=== PATIENT | female | born 1965 | race Caucasian/White ===

== ENCOUNTER 2017-08-27 08:34 | Observation (INO) ==
[2017-08-27 08:59] LABS: Bilirubin,Urine Negative (Negative); Blood,Urine Negative (Negative); Clarity,Urine Clear (Clear); Color,Urine Yellow (Yellow); Glucose,Urine (UA) Normal (Normal); Ketones,Urine Negative (Negative); Leukocyte Esterase,Urine Negative (Negative); Nitrite,Urine Negative (Negative); Protein,Urine Negative (Neg-Trace); Specific Gravity,Urine 1.008 (1.010-1.025); Urobilinogen,Urine Normal (Normal)
[2017-08-27] MEDS ORDERED: predniSONE 20 MG TABLET PO ONE (09:01)
[2017-08-27] MEDS: Ipratropium/Albuterol Neb 3 ML IH SCH ×5 (09:24→23:52)
[2017-08-27] MEDS ORDERED: Ipratropium/Albuterol Neb 3 ML ONE (09:29)
[2017-08-27 09:38] LABS: Basophils # 0.2 K/mcL (0.0-0.2); Basophils % 2.1 %; Eosinophils # 0.6 K/mcL (0.0-0.6); Eosinophils % 8.4 %; Hematocrit 38.5 % (35.3-44.9); Hemoglobin 11.2 g/dL (11.5-15.4); Immature Granulocytes % 0.5 % (0-4); Lymphocytes # 2.2 K/mcL (0.6-4.6); Lymphocytes % 29.9 %; Mean Corpuscular HGB Conc 29.1 g/dL (31.6-35.5); Mean Corpuscular Hemoglobin 19.9 pg (28.0-33.3); Mean Corpuscular Volume 68.5 fL (83.0-100.0); Mean Platelet Volume 10.6 fL (9.4-12.4); Monocytes # 0.4 K/mcL (0.0-1.3); Monocytes % 4.9 %; Platelet Count 336 K/mcL (140-400); Red Blood Count 5.62 M/mcL (3.82-4.97); Red Cell Distribution Width 18.6 % (11.5-14.5); Segmented Neutrophils % 54.2 %
[2017-08-27 09:41] LABS: INR 1.1; Prothrombin Time 11.3 Seconds (9.4-12.1)
[2017-08-27 09:44] LABS: Activated Partial Thrombo Time 31.9 Seconds (26.0-36.0)
--- NOTE | 2017-08-27 09:48 | Emergency Department Note ---
Disposition Clinical Impression: Hypertensive urgency, COPD exacerbation Disposition: Admitted As Inpatient Condition: Fair Chest Pain HPI - General Chief Complaint: ED Dizziness Stated Complaint: sob,CP,dizzy Time Seen by Provider: 08/27/17 08:45 Source: patient Limitations: no limitations Vital Signs Reviewed: Yes Nursing Notes Reviewed: Yes - History of Present Illness HPI Narrative: 52-year-old female with a past medical history of COPD complaining of shortness of breath followed by substernal chest pain. She states shortness of breath began this morning at 3 AM prior to work, and refractory to albuterol inhaler treatment. Patient states chest pain worsened on exertion, relieved on rest, describes as "dull", and endorses radiation to left arm. She did not take any medication, including no aspirin, for chest pain. Patient states chest pain constant. Denies previous occurrence of such pain. Patient endorses active smoker. Not on O2 at home. Has required previous hospitalization many years ago , before 2010. Unable to state which year. No previous intubations. Patient does not follow-up with a primary care provider, and has not seen provider for several years. Patient denies back pain, abdominal pain, fever, or chills. Social: Patient's recently a week ago. Patient did endorse suicidal thoughts last week. Today, denies suicidal or homicidal ideation. Pt complaint: chest pain Severity scale (1-10): 10 - Related Data Home Medications Medication Instructions Recorded Confirmed Albuterol Sulfate [Proair Hfa] 2 puff IH Q4-6H PRN 08/27/17 08/27/17 Ferrous Sulfate [Iron] 325 mg PO DAILY 08/27/17 08/27/17 Multivit-Min/FA/Lycopen/Lutein [A 1 tab PO DAILY 08/27/17 08/27/17 Thru Z Select Multivit Tab] Allergies Allergy/AdvReac Type Severity Reaction Status Date / Time ampicillin Allergy Hives Verified 08/27/17 11:07 codeine Allergy Rash Verified 08/27/17 11:07 Review of Systems: As Per HPI Constitutional: Reports: as per HPI Cardiovascular: Reports: as per HPI Respiratory: Reports: as per HPI Psychiatric: Reports: as per HPI Chest Pain PMH - Past Medical History Medical history: Reports: COPD Psychiatric history: Reports: no psych history - Social History Smoking Status: Current every day smoker Alcohol use: Reports: none Drug use: Reports: none Physical Exam - General Limitations: no limitations General appearance: alert, in no apparent distress - Eye Eye exam: Present: normal appearance, EOMI - Chest Chest inspection: Present: symmetric chest wall rise. Absent: tenderness, rash - Respiratory Respiratory exam: Present: wheezes, prolonged expiratory phase - Cardiovascular Cardiovascular exam: Present: regular rate, normal rhythm, +S1, +S2 - Abdominal Exam Abdominal exam: Present: soft, Non-Tender. Absent: distention, rebound - Skin Skin exam: Present: warm. Absent: cyanosis, diaphoresis Course Course Narrative: #Hypertensive Urgency Vital signs, per protocol Initial SBP over >190 Blood pressure 152/92 CBC, BMP, UA, Troponin < 0.03 Nitropaste x1 Aspirin x 1 #COPD Exacerbation Duonebs Corticosteroids x1 Continuous pulse oximetry Oxygen supplementation, with goal of SaO2 > 90% #52-year-old female with cardiovascular risk factors (HTN, obesity, smoking status) presenting with substernal chest pain Heart Score 4 EKG reviewed Troponin < 0.03 Control of HTN - Reevaluation(s) Reevaluation #1: 10:55 BP 152/92 Patient status post DuoNeb treatment. SOB improved. Endorses "dull" chest pain. PE positive for wheezing b/l. - Consultations Consultation #1: 08/27/17 10:50 AM - Hospitalist consultation: Discussion with Dr. Day. Hospitalist accepts admission for COPD exacerbation with failure of outpatient treatment and hypertensive urgency. Vital Signs Temperature 97.5 F L 08/27/17 08:35 Pulse Rate 86 08/27/17 08:35 Respiratory Rate 18 08/27/17 08:35 Blood Pressure 195/110 08/27/17 08:35 O2 Sat by Pulse Oximetry 98 08/27/17 08:35 Temperature 98.1 F 08/27/17 12:32 Pulse Rate 85 08/27/17 12:32 Respiratory Rate 16 08/27/17 12:32 Blood Pressure 158/78 08/27/17 12:32 O2 Sat by Pulse Oximetry 97 08/27/17 12:32 Oxygen Delivery Oxygen Delivery Room Air Chest Pain - MDM Narrative Medical decision making narrative: 52-year-old female with cardiovascular risk factors and COPD exacerbation lost to follow-up presenting with substernal chest pain with radiation to left arm shortness of breath, after failure of outpatient breathing treatment treatment, and lastly elevated blood pressure. Estimated HEART Score 4- 12-16.6% risk of adverse cardiac event. The pressure concerning for hypertensive urgency, and due to clinical presentation would recommend patient for admission. - Lab Data Result diagrams: 08/27/17 09:22 08/27/17 09:22 Lab Results 08/27/17 08/27/17 08/27/17 Range/Units 08:50 09:22 09:22 WBC 7.5 (4.3-11.1) K/mcL RBC 5.62 H (3.82-4.97) M/mcL Hgb 11.2 L (11.5-15.4) g/dL Hct 38.5 (35.3-44.9) % MCV 68.5 L (83.0-100.0) fL MCH 19.9 L (28.0-33.3) pg MCHC 29.1 L (31.6-35.5) g/dL RDW 18.6 H (11.5-14.5) % Plt Count 336 (140-400) K/mcL MPV 10.6 (9.4-12.4) fL Immature Gran % 0.5 (0-4) % Seg Neutrophils % 54.2 % Lymphocytes % 29.9 % Monocytes % 4.9 % Eosinophils % 8.4 % Basophils % 2.1 % Neutrophils # 4.1 (1.6-8.9) K/mcL Lymphocytes # 2.2 (0.6-4.6) K/mcL Monocytes # 0.4 (0.0-1.3) K/mcL Eosinophils # 0.6 (0.0-0.6) K/mcL Basophils # 0.2 (0.0-0.2) K/mcL Platelet Estimate Normal (Normal) Anisocytosis 1+ A (Not Present) Microcytosis Present A (Not Present) PT 11.3 (9.4-12.1) Seconds INR 1.1 APTT 31.9 (26.0-36.0) Seconds Sodium (136-145) mEq/L Potassium (3.5-5.1) mEq/L Chloride (98-107) mEq/L Carbon Dioxide (23-29) mEq/L BUN (6-20) mg/dL Creatinine (0.60-1.20) mg/dL Est GFR ( Amer) (> 60) Est GFR (Non-Af Amer) (> 60) BUN/Creatinine Ratio (6-26) Glucose (70-105) mg/dL Calculated Osmolality (280-300) Calcium (8.6-10.3) mg/dL Troponin I (< 0.04) ng/mL Urine Color Yellow (Yellow) Urine Clarity Clear (Clear) Urine pH 7.0 (5.0-8.0) pH Units Ur Specific [place] 1.008 L (1.010-1.025) Urine Protein Negative (Neg-Trace) mg/dL Urine Glucose (UA) Normal (Normal) mg/dL Urine Ketones Negative (Negative) mg/dL Urine Blood Negative (Negative) Urine Nitrite Negative (Negative) Urine Bilirubin Negative (Negative) Urine Urobilinogen Normal (Normal) mg/dL Ur Leukocyte Esterase Negative (Negative) Ur Culture Indicated? NO (NO) 08/27/17 Range/Units 09:22 WBC (4.3-11.1) K/mcL RBC (3.82-4.97) M/mcL Hgb (11.5-15.4) g/dL Hct (35.3-44.9) % MCV (83.0-100.0) fL MCH (28.0-33.3) pg MCHC (31.6-35.5) g/dL RDW (11.5-14.5) % Plt Count (140-400) K/mcL MPV (9.4-12.4) fL Immature Gran % (0-4) % Seg Neutrophils % % Lymphocytes % % Monocytes % % Eosinophils % % Basophils % % Neutrophils # (1.6-8.9) K/mcL Lymphocytes # (0.6-4.6) K/mcL Monocytes # (0.0-1.3) K/mcL Eosinophils # (0.0-0.6) K/mcL Basophils # (0.0-0.2) K/mcL Platelet Estimate (Normal) Anisocytosis (Not Present) Microcytosis (Not Present) PT (9.4-12.1) Seconds INR APTT (26.0-36.0) Seconds Sodium 139 (136-145) mEq/L Potassium 3.9 (3.5-5.1) mEq/L Chloride 106 (98-107) mEq/L Carbon Dioxide 29 (23-29) mEq/L BUN 9 (6-20) mg/dL Creatinine 0.54 L (0.60-1.20) mg/dL Est GFR ( Amer) > 60 (> 60) Est GFR (Non-Af Amer) > 60 (> 60) BUN/Creatinine Ratio 17 (6-26) Glucose 96 (70-105) mg/dL Calculated Osmolality 287 (280-300) Calcium 9.7 (8.6-10.3) mg/dL Troponin I < 0.03 (< 0.04) ng/mL Urine Color (Yellow) Urine Clarity (Clear) Urine pH (5.0-8.0) pH Units Ur Specific [place] (1.010-1.025) Urine Protein (Neg-Trace) mg/dL Urine Glucose (UA) (Normal) mg/dL Urine Ketones (Negative) mg/dL Urine Blood (Negative) Urine Nitrite (Negative) Urine Bilirubin (Negative) Urine Urobilinogen (Normal) mg/dL Ur Leukocyte Esterase (Negative) Ur Culture Indicated? (NO) - EKG Data EKG attestation: Yes I reviewed and interpreted this EKG. EKG results narrative: 08/27/2017 8:38:56 Sinus Tachycardia. Ventricular rate 100. MN interval 154. QRS duration 90. QT/QTc 371/428 ms. Reviewed with Attending Heart Score - Score History: Moderately Suspicious EKG: Normal Age: 45-65 Risk Factors: Equal/Greater than 3 risk factor or history of atherosclerotic disease (HTN, Obesity, Smoking) Troponin: Less than normal limit HEART Score Total: 4
[2017-08-27 09:51] LABS: Anisocytosis 1+ (Not Present); Microcytosis Present (Not Present); Neutrophils # 4.1 K/mcL (1.6-8.9); Platelet Estimate Normal (Normal)
[2017-08-27 09:59] LABS: Troponin I < 0.03 ng/mL (< 0.04)
[2017-08-27 10:08] LABS: BUN/Creatinine Ratio 17 (6-26); Blood Urea Nitrogen 9 mg/dL (6-20); Calcium 9.7 mg/dL (8.6-10.3); Carbon Dioxide 29 mEq/L (23-29); Chloride 106 mEq/L (98-107); Glucose 96 mg/dL (70-105); Osmolality,Calculated 287 (280-300); Potassium 3.9 mEq/L (3.5-5.1); Sodium 139 mEq/L (136-145); eGFR For African Americans > 60 (> 60); eGFR For Non-African Americans > 60 (> 60)
[2017-08-27] MEDS ORDERED: Nitroglycerin 1 INCH/GM PACKET TP ONE (10:44)
[2017-08-27] MEDS ORDERED: Aspirin 81 MG TAB.CHEW PO SCH (10:45)
--- NOTE | 2017-08-27 11:24 | Emergency Department Note ---
Disposition Clinical Impression: Hypertensive urgency, COPD exacerbation Disposition: Admitted As Inpatient Condition: Fair Referrals: NONE,PCP [Primary Care Provider] - Forms: ED Satisfaction Letter General Adult HPI - General Chief complaint: ED Dizziness Stated complaint: sob,CP,dizzy Time Seen by Provider: 08/27/17 08:45 Source: patient Mode of arrival: ambulatory Limitations: no limitations Nursing Notes Reviewed: Yes Vital Signs Reviewed: Yes - History of Present Illness Pain Scale: 10 - Related Data Home Medications Medication Instructions Recorded Confirmed Albuterol Sulfate [Proair Hfa] 2 puff IH Q4-6H PRN 08/27/17 08/27/17 Ferrous Sulfate [Iron] 325 mg PO DAILY 08/27/17 08/27/17 Multivit-Min/FA/Lycopen/Lutein [A 1 tab PO DAILY 08/27/17 08/27/17 Thru Z Select Multivit Tab] Allergies Allergy/AdvReac Type Severity Reaction Status Date / Time ampicillin Allergy Hives Verified 08/27/17 11:07 codeine Allergy Rash Verified 08/27/17 11:07 Constitutional: Reports: as per HPI Cardiovascular: Reports: as per HPI Respiratory: Reports: as per HPI Psychiatric: Reports: as per HPI Past Medical History - Past Medical History Medical history: Reports: COPD Psychiatric history: Reports: no psych history - Social History Smoking Status: Current every day smoker Smokeless Tobacco Status: No Alcohol use: Reports: none Drug use: Reports: none Physical Exam - General Limitations: no limitations General appearance: alert, in no apparent distress Course Vital Signs Temperature 97.5 F L 08/27/17 08:35 Pulse Rate 86 08/27/17 08:35 Respiratory Rate 18 08/27/17 08:35 Blood Pressure 195/110 08/27/17 08:35 O2 Sat by Pulse Oximetry 98 08/27/17 08:35 Temperature 97.5 F L 08/27/17 08:35 Pulse Rate 88 08/27/17 09:44 Respiratory Rate 18 08/27/17 09:44 Blood Pressure 194/117 08/27/17 09:44 O2 Sat by Pulse Oximetry 100 08/27/17 09:44 Oxygen Delivery Oxygen Delivery Room Air Medical Decision Making - Lab Data Result diagrams: 08/27/17 09:22 08/27/17 09:22 Lab Results 04/09/18 04/09/18 04/09/18 Range/Units 08:50 09:22 09:22 WBC 7.5 (4.3-11.1) K/mcL RBC 5.62 H (3.82-4.97) M/mcL Hgb 11.2 L (11.5-15.4) g/dL Hct 38.5 (35.3-44.9) % MCV 68.5 L (83.0-100.0) fL MCH 19.9 L (28.0-33.3) pg MCHC 29.1 L (31.6-35.5) g/dL RDW 18.6 H (11.5-14.5) % Plt Count 336 (140-400) K/mcL MPV 10.6 (9.4-12.4) fL Immature Gran % 0.5 (0-4) % Seg Neutrophils % 54.2 % Lymphocytes % 29.9 % Monocytes % 4.9 % Eosinophils % 8.4 % Basophils % 2.1 % Neutrophils # 4.1 (1.6-8.9) K/mcL Lymphocytes # 2.2 (0.6-4.6) K/mcL Monocytes # 0.4 (0.0-1.3) K/mcL Eosinophils # 0.6 (0.0-0.6) K/mcL Basophils # 0.2 (0.0-0.2) K/mcL Platelet Estimate Normal (Normal) Anisocytosis 1+ A (Not Present) Microcytosis Present A (Not Present) PT 11.3 (9.4-12.1) Seconds INR 1.1 APTT 31.9 (26.0-36.0) Seconds Sodium (136-145) mEq/L Potassium (3.5-5.1) mEq/L Chloride (98-107) mEq/L Carbon Dioxide (23-29) mEq/L BUN (6-20) mg/dL Creatinine (0.60-1.20) mg/dL Est GFR ( Amer) (> 60) Est GFR (Non-Af Amer) (> 60) BUN/Creatinine Ratio (6-26) Glucose (70-105) mg/dL Calculated Osmolality (280-300) Calcium (8.6-10.3) mg/dL Troponin I (< 0.04) ng/mL Urine Color Yellow (Yellow) Urine Clarity Clear (Clear) Urine pH 7.0 (5.0-8.0) pH Units Ur Specific [place] 1.008 L (1.010-1.025) Urine Protein Negative (Neg-Trace) mg/dL Urine Glucose (UA) Normal (Normal) mg/dL Urine Ketones Negative (Negative) mg/dL Urine Blood Negative (Negative) Urine Nitrite Negative (Negative) Urine Bilirubin Negative (Negative) Urine Urobilinogen Normal (Normal) mg/dL Ur Leukocyte Esterase Negative (Negative) Ur Culture Indicated? NO (NO) 08/27/17 Range/Units 09:22 WBC (4.3-11.1) K/mcL RBC (3.82-4.97) M/mcL Hgb (11.5-15.4) g/dL Hct (35.3-44.9) % MCV (83.0-100.0) fL MCH (28.0-33.3) pg MCHC (31.6-35.5) g/dL RDW (11.5-14.5) % Plt Count (140-400) K/mcL MPV (9.4-12.4) fL Immature Gran % (0-4) % Seg Neutrophils % % Lymphocytes % % Monocytes % % Eosinophils % % Basophils % % Neutrophils # (1.6-8.9) K/mcL Lymphocytes # (0.6-4.6) K/mcL Monocytes # (0.0-1.3) K/mcL Eosinophils # (0.0-0.6) K/mcL Basophils # (0.0-0.2) K/mcL Platelet Estimate (Normal) Anisocytosis (Not Present) Microcytosis (Not Present) PT (9.4-12.1) Seconds INR APTT (26.0-36.0) Seconds Sodium 139 (136-145) mEq/L Potassium 3.9 (3.5-5.1) mEq/L Chloride 106 (98-107) mEq/L Carbon Dioxide 29 (23-29) mEq/L BUN 9 (6-20) mg/dL Creatinine 0.54 L (0.60-1.20) mg/dL Est GFR ( Amer) > 60 (> 60) Est GFR (Non-Af Amer) > 60 (> 60) BUN/Creatinine Ratio 17 (6-26) Glucose 96 (70-105) mg/dL Calculated Osmolality 287 (280-300) Calcium 9.7 (8.6-10.3) mg/dL Troponin I < 0.03 (< 0.04) ng/mL Urine Color (Yellow) Urine Clarity (Clear) Urine pH (5.0-8.0) pH Units Ur Specific [place] (1.010-1.025) Urine Protein (Neg-Trace) mg/dL Urine Glucose (UA) (Normal) mg/dL Urine Ketones (Negative) mg/dL Urine Blood (Negative) Urine Nitrite (Negative) Urine Bilirubin (Negative) Urine Urobilinogen (Normal) mg/dL Ur Leukocyte Esterase (Negative) Ur Culture Indicated? (NO) Attestation Statement - Attestation Attestation: I, Colin Hi, examined this patient and my medical decision-making was reviewed with the AUTOM[employer] SPECIALIST/PA/Advanced Practice Nurse/Resident Physician. I agree with the documented findings, disposition and treatment plan as described except to the extent set forth below. 52-year-old female presents emergency Department with concerns of shortness of breath, chest pain and lightheadedness. Patient states pain is a dull ache in the center of her chest that radiates to the left upper extremity and left shoulder. Patient reports associated mild nausea but has not vomited. Patient does state the pain is worsened with cough however her pain remains when not coughing. Patient has no history of cardiac disease. She does have a history of COPD and has wheezing present on the lung exam. Patient does not have a primary care provider. Her blood pressure was significantly elevated in the emergency department with a systolic greater than 200. EKG did not show evidence of acute STEMI. Initial troponin was negative. Chest x-ray does not show acute infiltrate. Patient will be admitted to the hospitalist for further care and evaluation of her elevated blood pressure and further treatment of her COPD exacerbation.
[2017-08-27] MEDS ORDERED: Aspirin 81 MG TAB.CHEW PO ONE (11:54)
--- NOTE | 2017-08-27 12:49 | Internal Med History&Physical ---
Date of Encounter: 08/27/17 Time of Encounter: 12:46 Assessment and Plan (1) Chest pain Current visit: Yes Status: Acute Chest pain and possible contribution of COPD exacerbation but given her risk factors reluctant nuclear stress test in a.m. was blood pressure better control Qualifiers: Chest pain type: chest pain due to myocardial ischemia Ischemic chest pain type: unspecified angina pectoris type Qualified Code(s): I25.9 - Chronic ischemic heart disease, unspecified (2) Smoking Current visit: Yes Status: Acute Chronic (3) Hypertensive urgency Current visit: Yes Status: Chronic Likely contribution to chest pain patient is unaware of blood pressure issue was started on Norvasc and Lopressor (4) COPD exacerbation Current visit: Yes Status: Acute COPD exacerbation was started on Solu-Medrol and DuoNeb chest x-ray does not show pneumonia Internal Medicine - H&P: HPI Chief complaint: qchest pain and sob Admitted From: Emergency Dept Plans for Post Hospital Care: Home History of present illness: Ms. Chavez is a 52 year old female Patient with history of COPD, hypertension, obesity, high cholesterol and smoking patient presented emergency room with a chest pain describes a heaviness also cough nonproductive with increased shortness of breath on arrival to the emergency room patient was wheezing given breathing treatment chest x-ray does not show pneumonia blood pressure with very high 190s over 110 EKG is unremarkable patient will be admitted due to COPD exacerbation chest pain and hypertensive urgency. She is not on medication for blood pressure she was unaware of blood pressure issues Past Med Surg Social Fam HX - Past Medical History Medical history: COPD Psychiatric history: anxiety - Past Surgical History Surgical History: , cholecystectomy - Social History Smoking Status: Current every day smoker Smokeless Tobacco Status: No Alcohol use: none Drug use: none Internal Medicine - H&P: Meds Albuterol Sulfate [Proair Hfa] 2 puff IH Q4-6H PRN 08/27/17 [History] Ferrous Sulfate [Iron] 325 mg PO DAILY 08/27/17 [History] Multivit-Min/FA/Lycopen/Lutein [A Thru Z Select Multivit Tab] 1 tab PO DAILY 02/05 [History] 3 Allergy/AdvReac Type Severity Reaction Status Date / Time ampicillin Allergy Hives Verified 08/27/17 11:07 codeine Allergy Rash Verified 08/27/17 11:07 All Systems PM: A 10-system review of systems was performed and is negative for pertinent findings except as documented above in the HPI. - Constitutional Constitutional: no chills, no fever(s), no night sweats - EENT Eyes: no change in vision, no discharge, no pain, no photophobia Ears: no ear discharge, no ear pain, no tinnitus Nose, mouth and throat: no dysphagia, no nasal discharge, no neck pain, no sore throat - Cardiovascular Cardiovascular ROS IM: chest pain, dyspnea, dyspnea on exertion - Respiratory Respiratory: cough, dyspnea on exertion - Gastrointestinal Gastrointestinal: no abdominal pain, no diarrhea, no hematemesis, no hematochezia, no melena, no nausea, no vomiting - Genitourinary Genitourinary: no change in urinary stream, no dysuria, no flank pain, no hematuria - Musculoskeletal Musculoskeletal ROS IM: no numbness, no tingling - Integumentary Integumentary IM: no rash, no unusual bruising - Neurological Neurological ROS: no confusion, no convulsions, no focal weakness, no numbness, no tingling, no tremor(s) - Constitutional Vitals: Temp Pulse Resp BP Pulse Ox 98.1 F 85 16 158/78 97 08/27/17 12:32 08/27/17 12:32 08/27/17 12:32 08/27/17 12:32 08/27/17 12:32 - Head Head exam: Present: atraumatic, normocephalic - Eye Eye exam: Present: PERRL, conjuntiva pink, sclera anicteric Pupils: Present: PERRL - Respiratory Respiratory exam: Present: rhonchi, wheezes - Cardiovascular Cardiovascular exam: Present: RRR, +S1, +S2. Absent: diastolic murmur, gallop, rubs, systolic murmur - GI/Abdominal GI/Abdominal exam: Present: normal bowel sounds, soft, no peritoneal signs. Absent: distended, tenderness Internal Med - H&P Results - Labs CBC & Chem 7: 08/27/17 09:22 08/27/17 09:22
[2017-08-27] MEDS ORDERED: Naloxone 0.4 MG/ML INJ IVP PRN (12:53)
[2017-08-27] MEDS ORDERED: Ipratropium/Albuterol Neb 3 ML IH PRN (13:02)
[2017-08-27] MEDS: amLODIPine 5 MG TABLET PO SCH (14:05)
[2017-08-27] MEDS: 0.9 % Sodium Chloride 1,000 ML IVC SCH (14:06)
[2017-08-27] MEDS: Acetaminophen 325 MG TABLET PO PRN ×2 (14:15→22:05)
[2017-08-27] MEDS: MethylPREDNISolone 40 MG/ML VIAL IVP SCH (16:37)
[2017-08-27] MEDS: traMADol 50 MG TABLET PO PRN (20:32)
[2017-08-27] MEDS ORDERED: Perflutren Lipid Microsphere 1.3 ML in 0.9 % Sodium Chloride 8.7 ML IVP ONE (21:23)
[2017-08-28] MEDS: MethylPREDNISolone 40 MG/ML VIAL IVP SCH ×3 (00:10→15:51)
[2017-08-28 01:40] LABS: Basophils % 0.2 %; Hematocrit 34.7 % (35.3-44.9); Hemoglobin 10.1 g/dL (11.5-15.4); Immature Granulocytes % 0.5 % (0-4); Lymphocytes % 16.1 %; Mean Corpuscular HGB Conc 29.1 g/dL (31.6-35.5); Mean Corpuscular Volume 68.7 fL (83.0-100.0); Mean Platelet Volume 10.8 fL (9.4-12.4); Monocytes # 0.1 K/mcL (0.0-1.3); Monocytes % 1.9 %; Platelet Count 326 K/mcL (140-400); Red Blood Count 5.05 M/mcL (3.82-4.97); Red Cell Distribution Width 18.3 % (11.5-14.5); Segmented Neutrophils % 81.3 %
[2017-08-28 01:55] LABS: Alanine Aminotransferase 13 Units/L (7-52); Albumin 4.1 g/dL (3.5-5.7); Albumin/Globulin Ratio 1.5 (1.1-2.2); Alkaline Phosphatase 77 Units/L (34-104); Aspartate Amino Transferase 12 Units/L (13-39); BUN/Creatinine Ratio 20 (6-26); Bilirubin,Total 0.3 mg/dL (0.3-1.0); Blood Urea Nitrogen 10 mg/dL (6-20); Calcium 9.2 mg/dL (8.6-10.3); Carbon Dioxide 24 mEq/L (23-29); Chloride 109 mEq/L (98-107); Chol/HDL Ratio 3.1 (0-4.9); Cholesterol 157 mg/dL (< 200); Globulin 2.7 g/dL (2.4-3.5); Glucose 139 mg/dL (70-105); HDL Cholesterol 51 mg/dL (40-59); LDL Cholesterol,Calculated 96 mg/dL (0-99); Magnesium 2.3 mg/dL (1.6-2.6); Osmolality,Calculated 287 (280-300); Potassium 4.1 mEq/L (3.5-5.1); Sodium 138 mEq/L (136-145); Total Protein 6.8 g/dL (6.4-8.9); Triglycerides 48 mg/dL (< 150); eGFR For African Americans > 60 (> 60); eGFR For Non-African Americans > 60 (> 60)
[2017-08-28 02:05] LABS: Anisocytosis 1+ (Not Present); Hypochromasia Present (Not Present); Microcytosis Present (Not Present); Platelet Estimate Normal (Normal)
[2017-08-28] MEDS: Ipratropium/Albuterol Neb 3 ML IH SCH ×5 (05:25→20:12)
[2017-08-28] MEDS: 0.9 % Sodium Chloride 1,000 ML IVC SCH (05:27)
[2017-08-28] MEDS ORDERED: Regadenoson 0.4 MG/5 ML SYRINGE IVP ONE (06:50)
[2017-08-28] MEDS: Multivit/Ca/Min/Fe/FA 1 TAB TABLET PO SCH (10:00)
[2017-08-28] MEDS: amLODIPine 5 MG TABLET PO SCH (10:00)
[2017-08-28] MEDS: Acetaminophen 325 MG TABLET PO PRN (10:10)
--- NOTE | 2017-08-28 16:24 | Internal Med Progress Note ---
Date of Encounter: 08/28/17 Time of Encounter: 16:21 - Assessment and plan (1) Chest pain Current Visit: Yes Status: Acute Assessment and plan: -Patient presented with hypertensive urgency and chest pain. BP controlled and chest pain resolved. - Never take blood pressure medicine at home, started on Norvasc and Lopressor, Lopressor was changed to lisinopril. - Troponin negative 3, EKG no acute changes, chest x-ray essentially normal. - Echo is essentially normal except mild LV diastolic dysfunction. - Nuclear stress test no evidence of ischemia. - Chest pain likely muscular skeletal related. Qualifiers: Chest pain type: chest pain due to myocardial ischemia Ischemic chest pain type: unspecified angina pectoris type Qualified Code(s): I25.9 - Chronic ischemic heart disease, unspecified (2) COPD exacerbation Current Visit: Yes Status: Acute Assessment and plan: - Shortness of breath improved, IV steroid to change to oral, start tapering tomorrow. - Continue DuoNeb. (3) Smoking Current Visit: Yes Status: Acute Assessment and plan: - Smoking cessation discussed with patient. (4) Hypertensive urgency Current Visit: Yes Status: Resolved - Time Spent With Patient Total time spent is greater than 50% in coordination of care (as documented) at patient's floor/unit and/or counseling patient: Greater than 35 minutes - Subjective Interval history: She has no chest pain currently. Does complain shortness of breath on exertion. Currently still smoking half pack a day. - Constitutional Vitals: Temp Pulse Resp BP Pulse Ox 98.0 F 70 16 162/81 97 08/28/17 15:00 08/28/17 15:00 08/28/17 15:42 08/28/17 15:00 08/28/17 15:42 Exam: PHYSICAL EXAMINATION: GENERAL APPEARANCE: The patient is alert, oriented and in no acute distress. HEENT: Head is normocephalic. The sinuses are nontender. Pupils are equal and reactive. The nares are patent. Oropharynx clear without lesions. NECK: Supple without lymphadenopathy. HEART: Regular rate and rhythm. LUNGS: No crackles or wheezes are heard. ABDOMEN: Soft, nontender, nondistended with good bowel sounds heard. Inguinal area is normal. EXTREMITIES: Without cyanosis, clubbing or edema. NEUROLOGICAL: Gross nonfocal. SKIN: Warm and dry without any rash. Internal Medicine: Result - Labs CBC & Chem 7: 08/28/17 01:19 08/28/17 01:19 Labs: Short CBC 08/28/17 Range/Units 01:19 WBC 6.2 (4.3-11.1) K/mcL Hgb 10.1 L (11.5-15.4) g/dL Hct 34.7 L (35.3-44.9) % Plt Count 326 (140-400) K/mcL Neutrophils # 5.0 (1.6-8.9) K/mcL BMP 08/28/17 01:19 Sodium 138 Potassium 4.1 Chloride 109 H Carbon Dioxide 24 BUN 10 Creatinine 0.50 L Glucose 139 H Calcium 9.2 Cardiac Enzymes 08/27/17 08/28/17 Range/Units 19:23 01:19 Troponin I < 0.03 < 0.03 (< 0.04) ng/mL Liver Function 08/28/17 Range/Units 01:19 Total Bilirubin 0.3 (0.3-1.0) mg/dL AST 12 L (13-39) Units/L ALT 13 (7-52) Units/L Alkaline Phosphatase 77 (34-104) Units/L Albumin 4.1 (3.5-5.7) g/dL - ABG Interpretation ABG results: PT/INR, D-dimer PT 11.3 Seconds (9.4-12.1) 08/27/17 09:22 - Impressions Impressions Echocardiogram 08/27/17 13:05 Impressions: LVEF 60-65%. Normal LV systolic function and wall motion. Definity was used. Mild left ventricular diastolic dysfunction. Normal right ventricular structure and function. No significant valvular dysfunction. No pulmonary hypertension. Left Ventricular Wall Motion: Rest Echo Findings All wall segments showed normal motion. Findings: Study Quality * Technically adequate exam. ECG Findings * Normal sinus rhythm. Left Ventricle * LVEF 60-65%. * Normal LV chamber size, wall thickness and function. * Mild left ventricular diastolic dysfunction. * Definity was used. Right Ventricle * Normal right ventricular structure and function. Left Atrium * Normal left atrial size. Right Atrium * Normal right atrial size. Mitral Valve * Normal mitral valve structure - seen only in the Parasternal view. * No mitral regurgitation. * No mitral stenosis. Aortic Valve * No aortic regurgitation. * Trileaflet aortic valve. * No aortic stenosis. Tricuspid Valve * Tricuspid valve not well visualized. * No tricuspid regurgitation. * Estimated RA pressure is 3 mmHg. * Estimated RVSP is 17 mmHg. * No pulmonary hypertension. Pulmonic Valve * Pulmonic valve is not well visualized. * No pulmonic stenosis. * No pulmonic regurgitation. Pulmonary Artery * Pulmonary artery not well visualized. Aorta * Normally sized aortic root. Interatrial Septum * No evidence of PFO by color Doppler. Pericardium * There is no pericardial effusion present. IVC * The IVC is not dilated. Consult Discharge Plan - Plan Referrals: NONE,PCP [Primary Care Provider] -
[2017-08-28] MEDS: traMADol 50 MG TABLET PO PRN (20:00)
--- NOTE | 2017-08-28 22:53 | Electrocardiograph Report ---
[facility] Test Date: 2017-08-27 Pat Name: Sirena Chavez Department: 104 Room: [facility] Gender: F Title Lawyer: : 1965 Requested By: Kimmy Lorenzo Order Number: [id number] Reading MD: Mary Polk Measurements Intervals [place] Rate: 100 P: 56 TX: 154 QRS: 29 QRSD: 90 T: 53 QT: 371 QTc: 428 Interpretive Statements SINUS TACHYCARDIA ABNORMAL RHYTHM ECG WARNING: DATA QUALITY MAY AFFECT INTERPRETATION Electronically Signed On 08-28-2017 22:52:10 EDT by Mary Polk
[2017-08-28] MEDS ORDERED: Melatonin 3 MG TABLET PO PRN (23:37)
[2017-08-29] MEDS: Ipratropium/Albuterol Neb 3 ML IH SCH ×4 (00:01→12:03)
[2017-08-29] MEDS: amLODIPine 5 MG TABLET PO SCH (08:49)
[2017-08-29] MEDS: traMADol 50 MG TABLET PO PRN (08:50)
[2017-08-29] MEDS: Multivit/Ca/Min/Fe/FA 1 TAB TABLET PO SCH (08:50)
[2017-08-29] MEDS ORDERED: predniSONE 20 MG TABLET PO SCH (09:00)
[2017-08-29 10:41] VITALS: BP 115/69
--- NOTE | 2017-08-29 13:29 | Discharge Summary ---
- NOTES TO OUTPATIENT PROVIDER Notes to Outpatient Provider: f/u with PCP within a week. Orders not resulted at time of discharge: Pending orders 08/27/17 13:05 NM po perf SPECT multi [NM] Routine Date of Encounter: 08/29/17 Time of Encounter: 13:23 - Discharge Diagnosis (1) Chest pain Priority: Primary Status: Acute Qualifiers: Chest pain type: chest pain due to myocardial ischemia Ischemic chest pain type: unspecified angina pectoris type Qualified Code(s): I25.9 - Chronic ischemic heart disease, unspecified (2) COPD exacerbation Priority: Primary Status: Acute (3) Smoking Priority: Secondary Status: Acute (4) Hypertensive urgency Priority: Primary Status: Acute Hospital course: Ms. Chavez is a 52 year old female with significant cardiovascular risk factors including hypertension, hyperlipidemia, smoking, and obesity presented with chest pain, shortness breath, and nonproductive cough. Initial workup including troponin and EKG did not show any abnormalities. Subsequent subsequently underwent a nuclear stress test which was reported no ischemic change. Echocardiogram was essentially normal. Her shortness breath and cough was likely caused by COPD exacerbation, which was treated with bronchodilators and steroids. She was also found to have elevated low-pressure, Norvasc and lisinopril were started. On the discharge today, her blood pressure was well controlled, her respiratory status has much improved, she is free of chest pain. She will be discharged home today with continuation of steroids tapering. Was instructed to follow up with primary care within 1 week. Discharge discussed with: patient, family Time spent discussing smoking cessation with patient: more than 10 minutes - Time Spent with Patient Total time spent providing and/or coordinating discharge services: Greater than 30 minutes - Discharge Medications Prescriptions: amLODIPine [Norvasc] 10 mg PO DAILY #60 tablet Lisinopril [Zestril] 5 mg PO DAILY #60 tablet predniSONE [PredniSONE] See Taper PO DAILY #21 tablet Home Medications: Albuterol Sulfate [Proair Hfa] 2 puff IH Q4-6H PRN 08/27/17 [History] Ferrous Sulfate [Iron] 325 mg PO DAILY 08/27/17 [History] Multivit-Min/FA/Lycopen/Lutein [A Thru Z Select Multivit Tab] 1 tab PO DAILY 02/05 [History] Lisinopril [Zestril] 5 mg PO DAILY #60 tablet 08/29/17 [Rx] amLODIPine [Norvasc] 10 mg PO DAILY #60 tablet 08/29/17 [Rx] predniSONE [PredniSONE] See Taper PO DAILY #21 tablet 08/29/17 [Rx] Allergies/Adverse Reactions: 3 Allergy/AdvReac Type Severity Reaction Status Date / Time ampicillin Allergy Hives Verified 08/27/17 11:07 codeine Allergy Rash Verified 08/27/17 11:07 Date of admission: 08/27/17 11:51 Primary care physician: PCP NONE Anticipated date of discharge: 08/29/17 - Constitutional Vitals: Temp Pulse Resp BP Pulse Ox 97.8 F 76 18 115/69 95 08/29/17 10:36 08/29/17 10:36 08/29/17 10:36 08/29/17 10:36 08/29/17 10:36 Exam: PHYSICAL EXAMINATION: GENERAL APPEARANCE: The patient is alert, oriented and in no acute distress. HEENT: Head is normocephalic. The sinuses are nontender. Pupils are equal and reactive. The nares are patent. Oropharynx clear without lesions. NECK: Supple without lymphadenopathy. HEART: Regular rate and rhythm. LUNGS: No crackles or wheezes are heard. ABDOMEN: Soft, nontender, nondistended with good bowel sounds heard. Inguinal area is normal. EXTREMITIES: Without cyanosis, clubbing or edema. NEUROLOGICAL: Gross nonfocal. SKIN: Warm and dry without any rash. - Patient Status Disposition: Home, Self-Care Condition: Fair Functional capacity at discharge: independent ambulation Overall status at discharge: patient is back to baseline - Discharge Instructions Follow Up With: NONE,PCP [Primary Care Provider] - - Diet and Activity Activity: increase activity as tolerated Diet: low fat, low cholesterol, low salt diet
== END 2017-08-29 14:34 | disposition home or self-care (01) ==
LOC: 2SOUTHHOLD 08:34 → EMEROO 08:34 → 2SOUTHHOLD 12:03 → 3NENU 08-28 14:55
PROVIDERS: ADMIT Internal Medicine Cardiovascular Disease; ATTEND Registered Nurse

== ENCOUNTER 2019-11-26 08:07 | Observation (INO) ==
[2019-11-26] MEDS ORDERED: Isovue-370 500 ML BOTTLE IVP ONE (08:50)
[2019-11-26 09:28] LABS: Hematocrit 42.7 % (35.3-44.9); Hemoglobin 13.5 g/dL (11.5-15.4); Mean Corpuscular HGB Conc 31.6 g/dL (31.6-35.5); Mean Corpuscular Hemoglobin 26.6 pg (28.0-33.3); Mean Corpuscular Volume 84.2 fL (83.0-100.0); Mean Platelet Volume 10.2 fL (9.4-12.4); Platelet Count 262 K/mcL (140-400); Red Blood Count 5.07 M/mcL (3.82-4.97); Red Cell Distribution Width 14.2 % (11.5-14.5); White Blood Count 8.7 K/mcL (4.3-11.1)
[2019-11-26 10:08] LABS: BUN/Creatinine Ratio 23 (6-26); Blood Urea Nitrogen 11 mg/dL (6-20); Calcium 8.7 mg/dL (8.6-10.3); Carbon Dioxide 22 mEq/L (23-29); Chloride 105 mEq/L (98-107); Glucose 121 mg/dL (70-105); Osmolality,Calculated 287 (280-300); Potassium 3.8 mEq/L (3.5-5.1); Sodium 138 mEq/L (136-145); Troponin I < 0.03 ng/mL (< 0.04); eGFR For African Americans > 60 (> 60); eGFR For Non-African Americans > 60 (> 60)
[2019-11-26] MEDS ORDERED: Cefepime HCl 1,000 MG in 0.9 % Sodium Chloride Mini Bag 100 ML IVPB STA (11:30)
[2019-11-26] MEDS ORDERED: methylPREDNISolone 125 MG/2 ML VIAL IVP ONE (11:30)
[2019-11-26] MEDS ORDERED: Ondansetron 4 MG/2 ML VIAL IVP ONE (11:44)
[2019-11-26] MEDS ORDERED: Ondansetron 4 MG/2 ML VIAL ONE (11:44)
[2019-11-26] MEDS ORDERED: Naloxone 0.4 MG/ML INJ IVP PRN (12:30)
[2019-11-26] MEDS ORDERED: Perflutren Lipid Microsphere 1.3 ML in 0.9 % Sodium Chloride 8.7 ML IVP ONE (14:05)
[2019-11-26] MEDS ORDERED: Nicotine 14 MG PATCH.TD24 TD PRN (14:30)
[2019-11-26 14:53] LABS: Alanine Aminotransferase 88 Units/L (7-52); Albumin 4.3 g/dL (3.5-5.7); Albumin/Globulin Ratio 1.3 (1.1-2.2); Alkaline Phosphatase 94 Units/L (34-104); Aspartate Amino Transferase 30 Units/L (13-39); BUN/Creatinine Ratio 21 (6-26); Bilirubin,Total 0.4 mg/dL (0.3-1.0); Blood Urea Nitrogen 10 mg/dL (6-20); Calcium 9.1 mg/dL (8.6-10.3); Carbon Dioxide 25 mEq/L (23-29); Chloride 104 mEq/L (98-107); Globulin 3.4 g/dL (2.4-3.5); Glucose 113 mg/dL (70-105); Magnesium 2.2 mg/dL (1.6-2.6); Osmolality,Calculated 286 (280-300); Potassium 4.1 mEq/L (3.5-5.1); Sodium 138 mEq/L (136-145); Total Protein 7.7 g/dL (6.4-8.9); eGFR For African Americans > 60 (> 60); eGFR For Non-African Americans > 60 (> 60)
[2019-11-26] MEDS ORDERED: Ipratropium/Albuterol Neb 3 ML IH PRN (15:05)
[2019-11-26] MEDS ORDERED: Acetaminophen 325 MG TABLET PO ONE (15:45)
[2019-11-26] MEDS: Furosemide 20 MG/2 ML VIAL IVP SCH (15:54)
[2019-11-26] MEDS: *HR* Heparin 5,000 UNIT/ML VIAL SQ SCH (16:39)
[2019-11-27] MEDS ORDERED: Acetaminophen 325 MG TABLET PO ONE (03:12)
[2019-11-27 04:54] LABS: BUN/Creatinine Ratio 23 (6-26); Blood Urea Nitrogen 10 mg/dL (6-20); Calcium 8.7 mg/dL (8.6-10.3); Carbon Dioxide 26 mEq/L (23-29); Chloride 106 mEq/L (98-107); Glucose 136 mg/dL (70-105); Magnesium 2.2 mg/dL (1.6-2.6); Osmolality,Calculated 287 (280-300); Potassium 4.3 mEq/L (3.5-5.1); Sodium 138 mEq/L (136-145); eGFR For African Americans > 60 (> 60); eGFR For Non-African Americans > 60 (> 60)
[2019-11-27] MEDS: *HR* Heparin 5,000 UNIT/ML VIAL SQ SCH ×2 (05:12→17:04)
[2019-11-27 05:19] LABS: ABG Base Excess 3 mEq/L (-2 to 3); ABG HCO3 29 mEq/L (21-27); ABG Oxygen Saturation 93 % (95-98); ABG PCO2 49 mmHg (35-45); ABG PH 7.38 pH Units (7.32-7.45); ABG PO2 68 mmHg (85-104); ABG TCO2 31 mEq/L (20-26)
[2019-11-27] MEDS ORDERED: lisinopriL 5 MG TABLET PO SCH (09:00)
[2019-11-27] MEDS ORDERED: Multivit/Ca/Min/Fe/FA 1 TAB TABLET PO SCH (09:00)
[2019-11-27] MEDS ORDERED: Perflutren Lipid Microsphere 1.3 ML in 0.9 % Sodium Chloride 8.7 ML IVP PRN (09:47)
[2019-11-27] MEDS: Furosemide 20 MG/2 ML VIAL IVP SCH (10:25)
[2019-11-27 12:15] LABS: Estimated Average Glucose 128 mg/dl
[2019-11-27] MEDS ORDERED: lisinopriL 5 MG TABLET PO ONE (12:45)
[2019-11-27 14:53] VITALS: BP 119/69
== END 2019-11-27 17:26 | disposition home or self-care (01) ==
LOC: EMEROOARM 08:07 → 3BNU 08:07 → SUATTDRO 12:33 → 3BNU 13:16
PROVIDERS: ADMIT Internal Medicine; ATTEND Internal Medicine